=== PATIENT | female | born 1960 | race Caucasian/White ===

== ENCOUNTER 2016-03-06 10:41 | Emergency (ER) | payer BC ==
[2016-03-06 11:22] VITALS: BP 134/84
--- NOTE | 2016-03-06 12:20 | UC ---
Bite Injury/Animal HPI - HPI Summary HPI Summary: pt reports that her dog this morning had a seizure and in an attempt to help aide the dog she was trying to medicate the dog and got her left thumb and hand caught in the dog's mouth. c/o swelling, tenderness and two small lacerations and bite site The dog is a large pit bull. UTD with vaccinations and her pet. Pt reports that she is UTD with her tetanus. - History of Current Complaint Chief Complaint: UCLaceration Stated Complaint: DOG BITE Time Seen by Provider: 03/06/16 11:56 Hx Obtained From: Patient Hx Last Menstrual Period: 01/25/12 ?: No Severity Currently: Mild Severity Initially: Moderate Type of Bite: Pet Has Animal Been Immunized?: Yes Character: Puncture, Abrasion/Laceration Alleviating Factor(s): Rest Associated Signs And Symptoms: Positive: Swelling - Allergies/Home Medications Allergies/Adverse Reactions: Allergies Allergy/AdvReac Type Severity Reaction Status Date / Time Ketamine Allergy Severe See Comment Verified 02/18/16 10:49 dicyclomine Allergy Mild Dizziness Uncoded 02/18/16 10:14 PMH/Surg Hx/FS Hx/Imm Hx Previously Healthy: Yes Endocrine History Of: Reports: Thyroid Disease - Hypothyroid Denies: Diabetes Cardiovascular History Of: Denies: Cardiac Disorders, Hypertension, Congestive Heart Failure Respiratory History Of: Reports: Asthma Denies: COPD GI/ History Of: Denies: Ulcer, Renal Disease Cancer History Of: Denies: Breast Cancer - Surgical History Surgical History: Yes Surgery Procedure, Year, and Place: D&C 2 [facility] 2X 2012; HX OF 7 D&c PROCEDURES; AT 20 YEARS AGE REMOVED A WART TO HER LABIAL; COLONOSCOPY LAST ONE IN 2011-ALSO ENDOSCOPY IN 2011 WITH A BENIGN POLYP REMOVED TO HER STOMACH; - Family History Known Family History: Positive: None, Cardiac Disease, Hypertension, Diabetes, Other - cancer - Social History Lives: With Family Alcohol Use: Rare Substance Use Type: None Smoking Status (MU): Never Smoked Tobacco Review of Systems Constitutional: Negative Skin: Bruising, Other - puncture wounds, laceration, swelling, erythema Eyes: Negative ENT: Negative Respiratory: Negative Cardiovascular: Negative Gastrointestinal: Negative Genitourinary: Negative Motor: Decreased ROM - left thumb Neurovascular: Negative Musculoskeletal: Arthralgia - left thumb, and hand, Decreased ROM, Edema, Myalgia Neurological: Negative Psychological: Negative All Other Systems Reviewed And Are Negative: Yes Physical Exam Triage Information Reviewed: Yes Appearance: Well-Appearing Vital Signs: Initial Vital Signs Temp 97.3 F 03/06/16 11:00 Pulse 86 03/06/16 11:00 Resp 16 03/06/16 11:00 BP 134/84 03/06/16 11:00 Pulse Ox 98 03/06/16 11:00 Vital Signs Reviewed: Yes Eye Exam: Normal Neck exam: Normal Respiratory Exam: Other Respiratory: Positive: No respiratory distress Musculoskeletal: Positive: ROM Limited @ - r, Edema @ - left thumb, left hand Neurological Exam: Normal Psychological Exam: Normal Skin Exam: Other - left thumb and hand. two Small 1 cm long lacerations ~ 2-3 mm wide Bite Injury Course/Dx - Differential Dx/Diagnosis Differential Diagnosis/HQI/PQRI: Fracture, Laceration, Puncture, Other - dog bite Provider Diagnoses: dog bite. laceration. contusion Discharge - Discharge Plan Condition: Stable Disposition: HOME Prescriptions: Amoxicillin/Clavulanate SUSP* [Augmentin SUSP*] 6 ml PO Q12H #120 ml Ibuprofen TAB* [Motrin TAB* 600 MG] 600 mg PO Q8H PRN #15 tab PRN Reason: Pain Patient Education Materials: Animal Bite (ED) Referrals: Anil Abel MD [Primary Care Provider] -
--- NOTE | 2016-03-06 12:34 | RAD ---
Indication: Dog bite, injury to the left hand. 4 views of the hand demonstrates no fracture. No other bone or joint abnormality is noted. IMPRESSION: No fracture of the left hand is present.
== END 2016-03-06 12:36 | disposition home or self-care (01) ==
LOC: UCEAST 10:41
DX: S61.452A Open bite of left hand, initial encounter (principal); S61.052A Open bite of left thumb without damage to nail, initial encounter; W54.0XXA Bitten by dog, initial encounter; Y93.F9 Activity, other caregiving; Y92.9 Unspecified place or not applicable; Z88.8 Allergy status to other drugs, medicaments and biological substances
CPT/HCPCS: 99213; G0463

== ENCOUNTER 2018-11-10 21:25 | Emergency (ER) | payer BC ==
--- OUTSIDE RECORDS SUMMARY | 2018-11-10 21:37 | XMS REPORT | Continuity of Care Document ---
:1960 External Reference #:[id number] Author Name Jersey Schreiber MD (transmitted by agent of provider Renetta Garcia ) Address [address] [place] [id number] Care Team Providers Name Role Phone Anil Abel MD - Family Medicine Care Team Information Line Fisher Problems Active Problems Provider Date Obstructive sleep apnea syndrome Arminda Raygoza DNP, RN, CUSTOMER SERVICE CONSULTANT-BC Onset: Posttraumatic stress disorder Arminda Raygoza DNP, RN, CUSTOMER SERVICE CONSULTANT-BC Onset: 2018 Note: Pt concerned may interfere with PAP use Social History Type Date Description Comments Sex Unknown Tobacco Use Start: Unknown End: Former Cigarette Smoker Social smoker. 4 0000 per day for 6 months at the most Smoking Status Reviewed: 09/24/18 Former Cigarette Smoker Social smoker. 4 per day for 6 months at the most ETOH Use Currently consumes one glass of wine alcohol per week Tobacco Use Start: Unknown End: Patient is a former social and stopped Unknown smoker in 2002 Recreational Drug Use Denies Drug Use Smoking Wood stove in home Exercise Type/Frequency Exercises sporadically Exercise Type/Frequency Walks sporadically Exercise Type/Frequency Active in the home Allergies, Adverse Reactions, Alerts Active Allergies Reaction Severity Comments Date Ketamine 01/07/2016 Anesthesia 07/25/2017 Medications Active Medications SIG Qnty Indications Ordering Date Provider Methylprednisolone medrol dosepak 21units M25.562 Jersey Gallo 09/24/2018 4mg TBPK take as MD Abdoul instructed Lorazepam 1 po every 6 Unknown 0.5mg Tablets hours prn anxiety Effexor XR 2 tabs daily as Unknown 37.5mg Caps ER 24HR directed Vitamin D 1 by mouth every Unknown (Cholecalciferol) day 2000Unit Capsules Levothyroxine Sodium 1 tab by mouth Unknown 75mcg daily Tablets Multi Vitamin 1 by mouth every Unknown Tablets day Beano 1 tab by mouth Unknown Tablets daily prn Probiotic 1 by mouth every Unknown Capsules day prn New Zealander Herbs Unknown History Medications Estradiol 0.5gram vaginally 42.500gm N95.2 Rochelle Ruiz, 04/24/2018 - every night at 08/30/2018 0.1mg/GM Cream bedtime x 14 nights then 2x/week Medications Administered in Office Medication SIG Qnty Indications Ordering Provider Date Depomedrol 40MG Jersey Schreiber MD 04/05/2017 Injection Immunizations CPT Code Status Date Vaccine Lot # [id number] Given 12/09/2010 Influenza Virus 3Yrs & Over [id number] Given 12/11/2009 Influenza Virus 3Yrs & Over [id number] Given 11/25/2005 Influenza Virus 3Yrs & Over Vital Signs Date Vital Result Comment 09/24/2018 1:04pm Height 59 inches 4'11" Weight 138.00 lb BP Systolic 111 mmHg BP Diastolic 71 mmHg Respiratory Rate 16 /min Pain Level 8 BMI (Body Mass Index) 27.9 kg/m2 08/31/2018 10:37am Height 59 inches 4'11" Weight 134.25 lb with shoes Heart Rate 78 /min right radial BP Systolic Sitting 118 mmHg ule, reg cuff BP Diastolic Sitting 70 mmHg ule, reg cuff BP Systolic Standing 112 mmHg ule, reg cuff BP Diastolic Standing 72 mmHg ule, reg cuff BMI (Body Mass Index) 27.1 kg/m2 Ejection Fraction 60-65% echo 07/31/17 Results Test Date Facility Test Result H/L Range Note CBC Auto 08/29/2018 [facility] White Blood 5.2 10^3/uL Normal 3.5-10.[address] [place] [address] [phone] Red Blood Count 4.44 10^6/uL Normal 3.70-4.87 Hemoglobin 14.0 g/dL Normal 12.0-16.0 Hematocrit 40 % Normal 35-47 Mean Corpuscular Volume 89 fL Normal 80-97 Mean Corpuscular Hemoglobin 32 pg High 27-31 Mean Corpuscular HGB Conc 35 g/dL Normal 31-36 Red Cell Distribution Width 13 % Normal 10-15 Platelet Count 227 10^3/uL Normal 150-450 Mean Platelet Volume 9.2 fL Normal 7.4-10.4 Abs Neutrophils 3.0 10^3/uL Normal 1.5-7.7 Abs Lymphocytes 1.6 10^3/uL Normal 1.0-4.8 Abs Monocytes 0.4 10^3/uL Normal 0-0.8 Abs Eosinophils 0.1 10^3/uL Normal 0-0.6 Abs Basophils 0.0 10^3/uL Normal 0-0.2 Abs Nucleated RBC 0.0 10^3/uL Granulocyte % 58.0 % Lymphocyte % 30.7 % Monocyte % 8.2 % Eosinophil % 2.4 % Basophil % 0.7 % Nucleated Red Blood Cells % 0.1 Comp Metabolic 08/29/2018 [facility] Sodium 139 mmol/L Normal 135-[address] [place] [address] [phone] Potassium 4.1 mmol/L Normal 3.5-5.0 Chloride 105 mmol/L Normal 101-111 Co2 Carbon Dioxide 28 mmol/L Normal 22-32 Anion Gap 6 mmol/L Normal 2-11 Glucose 85 mg/dL Normal 70-100 Blood Urea Nitrogen 17 mg/dL Normal 6-24 Creatinine 0.75 mg/dL Normal 0.51-0.95 BUN/Creatinine Ratio 22.7 High 8-20 Calcium 9.7 mg/dL Normal 8.6-10.3 Total Protein 6.4 g/dL Normal 6.4-8.9 Albumin 4.3 g/dL Normal 3.2-5.2 Globulin 2.1 g/dL Normal 2-4 Albumin/Globulin Ratio 2.0 Normal 1-3 Total Bilirubin 0.70 mg/dL Normal 0.2-1.0 Alkaline Phosphatase 104 U/L Normal 34-104 Alt 32 U/L Normal 7-52 Ast 25 U/L Normal 13-39 Egfr Non- 79.4 >60 Egfr 96.0 >60 1 Laboratory test 08/29/2018 [facility] Magnesium 2.2 mg/dL Normal 1.9-2.[address] [place] [address] [phone] TSH (Thyroid Stim Horm) 0.47 mcIU/mL Normal 0.34-5.60 Lipid Panel - 08/29/2018 [facility] Creatine 48 U/L Normal 10- [address] Kinase(CK) [place], [place] [id number] [phone] Lipid Profile 08/29/2018 [facility] Triglycerides 145 2 (Trig/Chol/HD [address] mg/dL L) [place] [address] [phone] Cholesterol 226 mg/dL 3 HDL Cholesterol 77.5 mg/dL 4 LDL Cholesterol 120 mg/dL 5 Laboratory test 08/29/2018 [facility] B-Type 13 pg/mL <=[address] [place] [address] Peptide BNP [phone] Laboratory test 04/24/2018 [facility] Cytology SEE RESULT [address] [place] [address] [phone] 1 Because ethnic data is not always readily available, this report includes an eGFR for both -Americans and non- Americans. The National Kidney Disease Education Program (NKDEP) does not endorse the use of the MDRD equation for patients that are not between the ages of 18 and 70, are , have extremes of body size, muscle mass, or nutritional status, or are non- or non-. According to the National Kidney Foundation, irrespective of diagnosis, the stage of the disease is based on the level of kidney function: Stage Description GFR(mL/min/1.73 m(2)) 1 Kidney damage with normal or decreased GFR 90 2 Kidney damage with mild decrease in GFR 60-89 3 Moderate decrease in GFR 30-59 4 Severe decrease in GFR 15-29 5 Kidney failure <15 (or dialysis) 2 Desirable: <150 Borderline High: 150-199 High: 200-499 Very High: >500 3 Desirable: <200 Borderline High: 200-239 High: >239 4 Low: <40 Desirable: 40-60 High: >60 5 Desirable: <100 Near Optimal: 100-129 Borderline High: 130-159 High: 160-189 Very High: >189 6 SEE RESULT BELOW Name: RAYSA LANDRUM : [address]: Rochelle Ruiz MD Acct: [id number] Unit: [id number] AGE: 57 Location: [facility] Re04/24/18 SEX: F Status: REG REF SPEC: [id number] LORENA: 04/24/[address]: Rochelle Ruiz MD REQ: [id number] RECD: 04/24/18 STATUS: SOUT _ ORDERED: TP IMAGE ANALYS, HPV/Thin Prep COMMENTS: [id number] Negative for Intraepithelial lesion or Malignancy Date Time Test Result Flag (u) Normal Range 04/24/18958 @ HPV RNA Negative Negative @ @ The high-risk HPV types detected by the assay include: 16, @ 18, 31, 33, 35, 39, 45, 51, 52, 56, 58, 59, 66, and 68. A. Ectocervical/Endocervical Specimen Adequacy: Satisfactory of evaluation Transformation zone component identified Patient Information: HPV: High risk HPV RNA testing regardless of pap results. Actual Specimen Date: 04/24/18 Last Menstrual Date: 02/07/16 ?: N Post Menopausal?: Y Hysterectomy?: N Previous Abnormal Pap Smears?:Y If Yes, enter Diagnosis: HPV+ Signed by and Reported on: URIAH Tubbs (ASCP) 0315 This Pap test was evaluated with the assistance of the [facility] SolutionPrep Test Imaging System. Due to cytologic findings at the elevator service technician microscope, comprehensive manual rescreening by a Ship Carpenter may be required. The Pap Smear is a screening test designed to aid in the detection of premalignant and malignant conditions of the uterine cervix. It is not a diagnostic procedure and should not be used as the sole means of detecting cervical cancer. Both false- positive and false- negative reports do occur. Depending on your risk status, a Pap smear should be obtained and evaluated every 1-3 years. END OF REPORT DEPARTMENT OF PATHOLOGY, [address] [place] [address] Ankur Dia M.D. Director HONG # [id number] Procedures Date Code Description Status 08/31/2018 59115 EKG Tracing & Interpretation Completed 12/18/2017 [id number] Mammogram Completed 12/30/2015 [id number] Bone Mineral Density Test Completed 06/19/2015 [id number] Mammogram Completed 02/11/2014 [id number] Mammogram Completed 12/02/2002 [id number] Colonoscopy Completed Medical Devices Description No Information Available Encounters Type Date Location Provider Dx Diagnosis Office Visit 08/31/2018 [facility] Allison Ovalle, G47.33 Obstructive sleep 10:30a N.P. apnea (adult) (pediatric) I49.1 Atrial premature depolarization I49.3 Ventricular premature depolarization R94.31 Abnormal electrocardiogram [ECG] [EKG] Office Visit 05/25/2018 [facility] G47.33 Obstructive sleep 8:30a [facility] Raygo[facility], RN, apnea (adult) [facility] CUSTOMER SERVICE CONSULTANT-BC (pediatric) J34.89 Other specified disorders of nose and nasal sinuses Office Visit 04/24/2018 9:00a [facility] Rochelle Ruiz, N95.[address] [facility] atrophic vaginitis at [place] Z01.419 Encntr for obstetrics gynecology md exam (general) (routine) w/o abn findings Z11.51 Encounter for screening for human papillomavirus (HPV) Assessments Date Code Description Provider 09/24/2018 M25.562 Pain in left knee Jersey Schreiber MD 08/31/2018 R94.31 Abnormal electrocardiogram [ECG] Duong Maier M.D. [EKG] 08/31/2018 G47.33 Obstructive sleep apnea (adult) Allison Ovalle, N.P. (pediatric) 08/31/2018 I49.1 Atrial premature depolarization Allison Ovalle, N.P. 08/31/2018 I49.3 Ventricular premature depolarization Allison Ovalle, N.P. 08/31/2018 R94.31 Abnormal electrocardiogram [ECG] Allison Ovalle, N.P. [EKG] 05/25/2018 G47.33 Obstructive sleep apnea (adult) Arminda Raygoza DNP, RN, (pediatric) CUSTOMER SERVICE CONSULTANT-BC 05/25/2018 J34.89 Other specified disorders of nose and Armindapatricia Raygoza DNP , RN, nasal sinuses CUSTOMER SERVICE CONSULTANT-BC 04/24/2018 N95.2 Postmenopausal atrophic vaginitis Rochelle Ruiz MD 04/24/2018 Z01.419 Encounter for gynecological Rochelle Ruiz MD examination (general) (routine) 04/24/2018 Z11.51 ut abnormal findings Rochelle Ruiz MD Plan of Treatment Future Appointment(s):10/18/2018 2:00 pm - Master Santos MD at [facility] Lunugcllcrx01/11/2019 8:15 am - Arminda Raygoza DNP, RN, CUSTOMER SERVICE CONSULTANT-BC at [facility]09/24/2018 - Jersey Schreiber, MDM25.562 Pain in left kneeNew Medication:Methylprednisolone 4 mg - medrol dosepak take as instructedFollow up:Follow up: As needed Functional Status Description No Information Available Mental Status Description No Information Available Referrals Description No Information Available
--- OUTSIDE RECORDS SUMMARY | 2018-11-10 21:37 | XMS REPORT | Continuity of Care Document ---
:1960 External Reference #:[id number] Author Name Bharathi Gross MD (transmitted by agent of provider Stephen Dozier) Address [address] [place] [id number] Care Team Providers Name Role Phone Anil Abel MD - Family Medicine Care Team Information Strip Deburrer [phone] Problems Active Problems Provider Date Obstructive sleep apnea syndrome Arminda Raygoza DNP, RN, CODER-BC Onset: Posttraumatic stress disorder Arminda Raygoza DNP, RN, CODER-BC Onset: 2018 Note: Pt concerned may interfere with PAP use Knee pain Bharathi Gross MD Onset: 10/26/2018 Derangement of knee Bharathi Gross MD Onset: 10/26/2018 Iliotibial band friction syndrome Bharathi Gross MD Onset: 10/26/2018 Social History Type Date Description Comments Sex Unknown Tobacco Use Start: Unknown End: Former Cigarette Smoker Social smoker. 4 / per day for 6 months at the most Smoking Status Reviewed: 10/26/18 Former Cigarette Smoker Social smoker. 4 per [...] Medications SIG Qnty Indications Ordering Date Provider Diclofenac Sodium take 1 tablet 60tabs M76.32 Bharathi Gross, 10/26/2018 75mg Tablets twice a day with MD DR almazan Methylprednisolone medrol dosepak 21units M25.562 Jersey Gallo [...] by mouth every Unknown Capsules day prn Congolese Herbs Unknown Medications Administered in Office Medication SIG Qnty Indications Ordering Provider Date Depomedrol 40MG Jersey Schreiber MD 04/05/2017 Injection Immunizations CPT Code Status Date Vaccine Lot # [id number] Given 12/09/2010 Influenza Virus 3Yrs & Over [id number] Given 12/11/2009 Influenza Virus 3Yrs & Over [id number] Given 11/25/2005 Influenza Virus 3Yrs & Over Vital Signs Date Vital Result Comment 10/26/2018 10:26am Height 59 inches 4'11" Weight 140.00 lb Heart Rate 68 /min BP Systolic 102 mmHg BP Diastolic 68 mmHg Respiratory Rate 12 /min Pain Level 6 BMI (Body Mass Index) 28.3 kg/m2 09/24/2018 1:04pm Height 59 inches 4'11" Weight 138.00 lb BP Systolic 111 mmHg BP Diastolic 71 mmHg Respiratory Rate 16 /min Pain Level 8 BMI (Body Mass Index) 27.9 kg/m2 Results Test Date Facility Test Result H/L Range Note CBC Auto 08/29/2018 [facility] White Blood 5.2 10^3/uL Normal 3.5-10.[address] [place] [address] [phone] Red Blood Count 4.44 10^6/uL Normal 3.70-4.87 [...] Blood Cells % 0.1 Comp Metabolic 08/29/2018 [facility] Sodium 139 mmol/L Normal 135-[address] [place] [address] [phone] Potassium 4.1 mmol/L Normal 3.5-5.0 Chloride 105 [...] Egfr 96.0 >60 1 Laboratory test 08/29/2018 [facility] Magnesium 2.2 mg/dL Normal 1.9-2.[address] [place] [address] [phone] TSH (Thyroid Stim Horm) 0.47 mcIU/mL Normal 0.34-5.60 Lipid Panel - 08/29/2018 [facility] Creatine 48 U/L Normal 10- [address] Kinase(CK) [place] [address] [phone] Lipid Profile 08/29/2018 [facility] Triglycerides 145 2 (Trig/Chol/HD [address] mg/dL L) [place] [address] [phone] Cholesterol 226 mg/dL 3 HDL Cholesterol 77.5 mg/dL 4 LDL Cholesterol 120 mg/dL 5 Laboratory test 08/29/2018 [facility] B-Type 13 pg/mL <=[address] [place] [address] Peptide BNP [phone] 1 Because ethnic data is not always [...] High: 130-159 High: 160-189 Very High: >189 Procedures Date Code Description Status 08/31/2018 22235 EKG Tracing & Interpretation Completed 12/18/2017 [id number] Mammogram Completed 12/30/2015 [id number] Bone Mineral Density Test Completed 06/19/2015 [id number] Mammogram Completed 02/11/2014 [id number] Mammogram Completed 12/02/2002 [id number] Colonoscopy Completed Medical Devices Description No Information Available Encounters Type Date Location Provider Dx Diagnosis Office Visit 10/18/2018 [facility] Dermatology Master Santos MD L82.1 Other seborrheic 2:00p keratosis D22.61 Melanocytic nevi of right upper limb, including shoulder Z80.8 Family history of malignant neoplasm of organs or systems Office Visit 09/24/2018 1:00p Orthopedic Jersey Gallo M25.562 Pain in left knee Services Of MD Abdoul C.M.A. Office Visit 08/31/2018 10:30a Rick Ku G47.33 Obstructive sleep Cardiology Vasquez, N.P. apnea (adult) (pediatric) I49.1 Atrial premature depolarization I49.3 Ventricular premature depolarization R94.31 Abnormal electrocardiogram [ECG] [EKG] Office Visit 05/25/2018 [facility] G47.33 Obstructive sleep 8:30a [facility] Ray[facility], RN, apnea (adult) [facility] CODER-BC (pediatric) J34.89 Other specified disorders of nose and nasal sinuses Assessments Date Code Description Provider 10/26/2018 M76.32 Iliotibial band syndrome, left leg Bharathi Gross MD 10/26/2018 M22.2x2 Patellofemoral disorders, left knee Bharathi Gross MD 10/26/2018 M25.562 Pain in left knee Bharathi Gross MD 10/18/2018 L82.1 Other seborrheic keratosis Master Santos MD 10/18/2018 D22.61 Melanocytic nevi of right upper limb, Master Santos MD including shoulder 10/18/2018 Z80.8 Family history of malignant neoplasm Master Santos MD of other organs or systems 09/24/2018 M25.562 Pain in left knee Jersey Schreiber MD 08/31/2018 R94.31 Abnormal electrocardiogram [ECG] Duong Maier M.D. [EKG] 08/31/2018 G47.33 Obstructive sleep apnea (adult) Allison Ovalle N.P. (pediatric) 08/31/2018 I49.1 Atrial premature depolarization Allison Ovalle, N.P. 08/31/2018 I49.3 Ventricular premature depolarization Allison Ovalle N.P. 08/31/2018 R94.31 Abnormal electrocardiogram [ECG] Allison Ovalle N.P. [EKG] 05/25/2018 G47.33 Obstructive sleep apnea (adult) Arminda Raygoza DNP, RN, (pediatric) CODER-BC 05/25/2018 J34.89 Other specified disorders of nose and Arminda Raygoza DNP , RN, nasal sinuses CODER- Plan of Treatment Future Appointment(s):12/07/2018 8:00 am - Bharathi Gross MD at [facility].11/16/2018 8:15 am - Arminda Raygoza DNP, RN, [facility]- at [facility]10/26/2018 - Bharathi Gross, MDM76.32 Iliotibial band syndrome, left legNew Medication:Diclofenac Sodium 75 mg - take 1 tablet twice a day with foodNew Therapy:Physical TherapyFollow up:Follow up: with Abdoul in 6 weeks or as xsftqxD77.2x2 Patellofemoral disorders, left kneeNew Therapy:Physical YnisamxB06.562 Pain in left kneeNew Therapy:Physical Therapy Functional Status Description No Information Available Mental Status Description No Information Available Referrals Description No Information Available
--- OUTSIDE RECORDS SUMMARY | 2018-11-10 21:37 | XMS REPORT | Continuity of Care Document ---
:1960 External Reference #:[id number] Author Name Anil Abel M.D. Address [address] [place] [address] Care Team Providers Name Role Phone Anil Abel MD - Family Medicine Care Team Information Shearing Supervisor [phone] [facility] - Care Team Information Shearing Supervisor [phone] [facility] Sal[facility] Wayne - Holistic Care Team Information Shearing Supervisor [phone] Theresa Peña MD - Dermatology Care Team Information Shearing Supervisor Edward Benítez - Obstetrics & Care Team Information Shearing Supervisor Gynecology [facility] - Diagnostic Care Team Information Shearing Supervisor Radiology Rochelle Ruiz - Obstetrics Care Team Information Shearing Supervisor [phone] Daniela Pratt MD - Rheumatology Care Team Information Shearing Supervisor [phone] Jersey Schreiber MD - Orthopaedic Care Team Information Shearing Supervisor Surgery Problems Active Problems Provider Date Hypothyroidism Anil Abel M.D. Onset: 11/06/2010 Gastroesophageal reflux disease Anil Abel M.D. Onset: 04/01/2011 Depressive disorder Anil Abel M.D. Onset: 01/16/2012 Disorder of thyroid gland Anil Abel M.D. Onset: 01/08/2016 Fibromyalgia Anil Abel M.D. Onset: 06/10/2016 Obstructive sleep apnea syndrome Anil Abel M.D. Onset: 04/21/2017 Family history of conduction disorder of the Anil Abel M.D. Onset: heart Knee pain Anil Abel M.D. Onset: 11/08/2018 Hypoglycemia Anil Abel M.D. Onset: 06/12/2018 Degenerative joint disease involving Anil Abel M.D. Onset: 05/03/2018 multiple joints Palpitations Anil Abel M.D. Onset: 10/30/2017 Social History Type Date Description Comments Sex Unknown Tobacco Use Start: Unknown End: Former Cigarette Smoker quit 20 yrs ago Unknown ETOH Use Rarely consumes alcohol Tobacco Use Start: Unknown End: Patient is a former smoker Unknown Smoking Status Reviewed: 04/16/18 Patient is a former smoker Allergies, Adverse Reactions, Alerts Active Allergies Reaction Severity Comments Date Anesthesia serotonin syndrome? 09/18/2010 Inactive Allergies NKDA 09/18/2010 Medications Active Medications SIG Qnty Indications Ordering Date Provider Lorazepam take 1 tablet by 90tabs Anil FEliza 10/30/2018 0.5mg mouth three times a Lisa Abel Tablets day Venlafaxine HCL ER take 1 capsules 180caps Anil FEliza 10/30/2018 daily Lisa Abel 37.5mg Caps ER 24HR Vitamin D qd Anil FEliza 01/08/2016 2000Unit Lisa Abel Tablets Synthroid 1 by mouth every 90tabs Anil FEliza 02/03/2015 75mcg day Lisa Abel Tablets Multivitamin Adult 1 by mouth every Anil F. day Lisa Abel Tablets Magnesium 1 daily Unknown Capsules Vitamin B12 1 daily Unknown Tablets Latvian Herbal for constipation Unknown Supplement History Medications Alprazolam take one tablet 30tabs F41.1 Ashtyn Byers, 10/25/2018 - 0.5mg by mouth once INVESTMENT REPRESENTATIVE 11/08/2018 Tablets daily as needed for anxiety Note No Work Debbie was seen F32.89 Ashtyn Byers, 10/19/2018 - by me today and INVESTMENT REPRESENTATIVE 11/08/2018 may not return to work until Monday, Physical Therapy evaluate and M25.511 Ashtyn Byers, 05/24/2018 - treat right INVESTMENT REPRESENTATIVE 10/24/2018 shoulder pain that radiates to the elbow Immunizations CPT Code Status Date Vaccine Lot # [id number] Given 11/08/2018 Influenza Virus Vaccine, Recombinant Dna, [id number] [place] [address] Given 12/13/2017 Influenza Virus Vaccine, Recombinant Dna, [id number] [place] [address] Given 11/25/2016 Influenza Vac, Quadrivalent, Slit Virus, Im [id number] 18627 Given 03/08/2016 Tetanus And Diptheria Adult Preservative Free [id number] >7Yrs 80543 Given 01/19/2016 Influenza Vac, Quadrivalent, Slit Virus, Im [id number] 44122 Given 10/31/2014 Influenza Vac, Quadrivalent, Slit Virus, Im [id number] 49716 Given 11/19/2013 DO Not Use Split Influenza Virus Vaccine [id number] 40120 Given 12/20/2012 DO Not Use Split Influenza Virus Vaccine [id number] 23999 Given 01/16/2012 DO Not Use Split Influenza Virus Vaccine [id number] 90874 Given 01/11/2008 DO Not Use Split Influenza Virus Vaccine [id number] 08215 Given 08/03/2007 Tdap Tetanus, W Pertussis [id number] 67669 Given 01/17/2007 DO Not Use Split Influenza Virus Vaccine [id number] Vital Signs Date Vital Result Comment 11/08/2018 8:08am BP Systolic 116 mmHg BP Diastolic 78 mmHg Heart Rate 64 /min Body Temperature 97.7 F Respiratory Rate 16 /min Height 59 inches 4'11" Weight 140.00 lb BMI (Body Mass Index) 28.3 kg/m2 10/25/2018 2:59pm BP Systolic 110 mmHg BP Diastolic 60 mmHg Heart Rate 60 /min Body Temperature 98.1 F Respiratory Rate 16 /min Height 59 inches 4'11" Weight 137.12 lb BMI (Body Mass Index) 27.7 kg/m2 Results Test Date Facility Test Result H/L Range Note CBC Auto Diff 08/29/2018 [facility] [place] [facility] [place] White Blood Count 5.2 10^3/uL Normal 3.5- 10.8 Red Blood Count 4.44 10^6/uL Normal 3.70-4.87 [...] % Nucleated Red Blood Cells % 0.1 Laboratory test 08/29/2018 [facility] [place] [facility] [place] B-Type Natriuretic 13 pg/mL <=100 finding Peptide BNP Comp Metabolic Panel 08/29/2018 [facility] [place] Sodium 139 mmol/L Normal 135-145 Potassium 4.1 mmol/L Normal 3.5-5.0 Chloride 105 [...] Non- 79.4 >60 Egfr 96.0 >60 1 Lipid Profile (Trig/Chol/HDL) 08/29/2018 [facility] Triglycerides 145 mg/dL 2 Cholesterol 226 mg/dL 3 HDL Cholesterol 77.5 mg/dL 4 LDL Cholesterol 120 mg/dL 5 Laboratory test finding 08/29/2018 [facility] Magnesium 2.2 mg/dL Normal 1.9- 2.7 Creatine Kinase(CK) 48 U/L Normal 10-223 TSH (Thyroid Stim Horm) 0.47 mcIU/mL Normal 0.34-5.60 1 Because ethnic data is not always [...] High: >189 Procedures Date Code Description Status 12/18/2017 [id number] Mammogram Completed 08/26/2016 [id number] Mammogram Completed 12/08/2015 [id number] Bone Mineral Density Test Completed 06/19/2015 [id number] Mammogram Completed 02/11/2014 [id number] Mammogram Completed 01/08/2013 [id number] Mammogram Completed 12/12/2011 [id number] Mammogram Completed 06/20/2011 [id number] Colonoscopy Completed 12/28/2010 [id number] Mammogram Completed 09/17/2008 [id number] Mammogram Completed 09/24/2007 [id number] Mammogram Completed 03/19/2007 [id number] Mammogram Completed Medical Devices Description No Information Available Encounters Type Date Location Provider Dx Diagnosis Office Visit 10/25/2018 [facility] Ashtyn Byers, INVESTMENT REPRESENTATIVE F32.89 Other specified 3:00p depressive episodes F41.1 Generalized anxiety disorder Office Visit 10/19/2018 2:00p [facility] Ashtyn Byers, INVESTMENT REPRESENTATIVE M25.562 Pain in left knee F32.89 Other specified depressive episodes Office Visit 05/24/2018 10:30a [facility] Ashtyn Byers, M25.511 Pain in right INVESTMENT REPRESENTATIVE shoulder Assessments Date Code Description Provider 11/08/2018 Z23 Encounter for immunization Anil Abel M.D. 11/08/2018 F32.89 Other specified depressive episodes Anil Abel M.D. 11/08/2018 M25.562 Pain in left knee Anil Abel M.D. 11/08/2018 G47.33 Obstructive sleep apnea (adult) (pediatric) Anil Abel M.D. 10/25/2018 F32.89 Other specified depressive episodes Ashtyn Floresr, [facility] 10/25/2018 F41.1 Generalized anxiety disorder Ashtyn Floresr, INVESTMENT REPRESENTATIVE 10/19/2018 M25.562 Pain in left knee Ashtyn Floresr, [facility] 10/19/2018 F32.89 Other specified depressive episodes Ashtyn Byers, [facility] 06/12/2018 E16.1 Other hypoglycemia Anil Abel M.D. 05/24/2018 M25.511 Pain in right shoulder Ashtyn PAULIE Byers Plan of Treatment Future Appointment(s):05/16/2019 8:00 am - Anil Abel M.D. at [facility] Hrgkvj6511/08/2018 - Anil Abel M.D.Z23 Encounter for immunizationFollow up :Followup:. (Follow up)F32.89 Other specified depressive episodesComments:she may try to taper and discontinue effexor, but also might continue, to consider counselling , patient continues to struggle with ongoing symptoms of depression and alwkhhH01.562 Pain in left kneeComments:to continue with physical therapy, MRI oxnjhwtfT53.33 Obstructive sleep apnea (adult) (pediatric)Comments:to continue cpapAllComments:Medication Management Patient Understands medications she's taking? Yes No Are there Barriers to Adherence? Yes No Has the patient been asked about herbal supplements and therapies, and OTC meds? Yes No mammogram and ultrasound ordered Functional Status Description No Information Available Mental Status Description No Information Available Referrals Description No Information Available
--- NOTE | 2018-11-10 21:55 | ED ---
Throat Pain/Nasal Congestion - HPI Summary HPI Summary: This patient is a 58 year old F presenting to [facility] accompanied by male friend with a chief complaint of left eye issues since last night, 11/09/18, but noticed this morning 11/10/18. The CC is described as strings of light/ flashes in left eye (comes in and goes out) with slight eye pressure. Pt reports vision is normal and right eye is unaffected. Symptoms aggravated by nothing. Symptoms alleviated by nothing. Patient reports her dog "head-butted" her and does not recall eye pain due to hit. Patient denies nausea, vomiting. Denies contacts but wears glasses. Denies any previous eye issues except floaters. Takes medication for depression. - History of Current Complaint Chief Complaint: EDEyeProblem Time Seen by Provider: 11/10/18 21:43 Hx Obtained From: Patient Onset/Duration: Lasting Days, Still Present - Allergies/Home Medications Allergies/Adverse Reactions: Allergies Allergy/AdvReac Type Severity Reaction Status Date / Time MS Ketamine [Ketamine] Allergy Severe See Comment Verified 11/10/18 21:29 dicyclomine Allergy Mild Dizziness Uncoded 11/10/18 21:29 PMH/Surg Hx/FS Hx/Imm Hx Endocrine/Hematology History: Reports: Hx Thyroid Disease - Hypothyroid Denies: Hx Diabetes, Hx Systemic Lupus Erythematosus Cardiovascular History: Denies: Hx Congestive Heart Failure, Hx Hypertension, Hx Pacemaker/ICD Respiratory History: Reports: Hx Asthma Denies: Hx Chronic Obstructive Pulmonary Disease (COPD) GI History: Reports: Hx Gastroesophageal Reflux Disease Denies: Hx Ulcer, Other GI Disorders History: Denies: Hx Dialysis, Hx Renal Disease Musculoskeletal History: Denies: Hx Rheumatoid Arthritis, Hx Osteoporosis Sensory History: Denies: Hx Hearing Aid Psychiatric History: Denies: Hx Panic Disorder - Cancer History Cancer Type, 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 Hx Chemotherapy: Yes - FACE Hx Radiation Therapy: No - Surgical History Surgery Procedure, Year, and Place: D&C 2 [facility] 2X 2012; HX OF 7 D&c PROCEDURES; AT 20 YEARS AGE REMOVED A WART TO HER LABIAL; COLONOSCOPY LAST ONE IN 2011-ALSO ENDOSCOPY IN 2011 WITH A BENIGN POLYP REMOVED TO HER STOMACH; Infectious Disease History: No Infectious Disease History: Denies: Hx Clostridium Difficile, Hx Hepatitis, Hx Human Immunodeficiency Virus (HIV), Hx of Known/Suspected MRSA, Hx Shingles, Hx Tuberculosis, Hx Known/ Suspected VRE, Hx Known/Suspected VRSA, History Other Infectious Disease, Traveled Outside the [place] in Last 30 Days - Family History Known Family History: Positive: Cardiac Disease, Hypertension, Diabetes, Other - cancer - Social History Alcohol Use: Rare Hx Substance Use: No Substance Use Type: Reports: None Hx Tobacco Use: No Smoking Status (MU): Never Smoked Tobacco Review of Systems Positive: Other - strings of light/ flashes in left eye , eye pressure Negative: Vomiting, Nausea All Other Systems Reviewed And Are Negative: Yes Physical Exam - Summary Physical Exam Summary: Appearance: Well-appearing, Well-nourished, lying in bed comfortable Skin: Warm, dry, no obvious rash Eyes:: both eyes appear grossly nml without injection, chemosis or swelling, gaze is conjugate, no diplopia, pupillary reaction is normal, visual acuity in both eyes appears grossly normal, no obvious peripheral field cuts to confrontation ENT: mucous membranes moist Neck: deferred Respiratory: No signs of respiratory distress Cardiovascular: Appears well perfused, pulses are nml Abdomen: deferred Musculoskeletal: Moving all 4 extremities without obvious discomfort Neurological: Awake and alert, mentation is normal, speech is fluent and appropriate Psychiatric: affect is normal, does not appear anxious or depressed Triage Information Reviewed: Yes Vital Signs On Initial Exam: Initial Vitals Temp Pulse Resp BP Pulse Ox 97.7 F 61 15 141/70 98 11/10/18 21:26 11/10/18 21:26 11/10/18 21:26 11/10/18 21:26 11/10/18 21:26 Vital Signs Reviewed: Yes Procedures - Sedation Patient Received Moderate/Deep Sedation with Procedure: No Diagnostics - Vital Signs Vital Signs Temp Pulse Resp BP Pulse Ox 11/10/18 21:26 97.7 F 61 15 141/70 98 - Laboratory Lab Statement: Any lab studies that have been ordered have been reviewed, and results considered in the medical decision making process. Re-Evaluation - Re-Evaluation First Eval Re-Evaluation Time: 22:07 Comment: Pt agrees with plan for discharge. EENT Course/Dx - Course Course Of Treatment: This patient is a 58 year old F presenting to [facility] accompanied by male friend with a chief complaint of left eye issues since last night, 11/09/18, but noticed this morning 11/10/18. The CC is described as strings of light/ flashes in left eye (comes in and goes out) with slight eye pressure. Pt reports vision is normal and right eye is unaffected. Patient denies nausea, vomiting. Physical Exam Findings shows no abnormalities except for both eyes appear grossly normal without injection or swelling, gaze is conjugate, no diplopia, reaction is normal, visual acuity in both eyes appears grossly normal, no obvious peripheral field cuts to confrontation. We discussed patient care with Dr. Martin and they recommended following up with them on 11/12/18, and if symptoms worsen to follow up with them tomorrow. The patient is agreeable with this plan. - Diagnoses Provider Diagnoses: Vitreous detachment - Provider Notifications Discussed Care Of Patient With: Rayna Martin - [facility] Time Discussed With Above Provider: 22:07 Instructed by Provider To: Other - recommends following up with them on 11/12/18, and if symptoms worsen to follow up with them tomorrow Discharge ED - Sign-Out/Discharge Documenting (check all that apply): Patient Departure - discharge - Discharge Plan Condition: Stable Disposition: HOME Referrals: Rayna Martin MD [Medical Doctor] - Additional Instructions: I spoke with Dr. Martin, who is the covering doctor for [facility] this . She will have her office contact you on Monday with a time to be seen then. She did caution that if your symptoms appear to be progressing through tomorrow, you can reach her through her service at [phone] and she will discuss things with you over the phone and can open the office to examine you anytime Monday if that proves necessary. - Billing Disposition and Condition Condition: STABLE Disposition: Home - Attestation Statements Document Initiated by Tatianaibe: Yes Documenting Scribe: Emilie Noel Provider For Whom Jason is Documenting (Include Credential): Dr. Arya Bryant MD. Scribe Attestation: I, aisha Michaelsed for Dr. Arya Bryant MD. on 11/11/18 at 1841. Scribe Documentation Reviewed: Yes Provider Attestation: The documentation as recorded by the Emilie holcomb accurately reflects the service I personally performed and the decisions made by me, Dr. Arya Bryant MD. Status of Scribe Document: Viewed
[2018-11-10 22:35] VITALS: BP 137/77
== END 2018-11-10 22:34 | disposition home or self-care (01) ==
LOC: ED 21:25
DX: H43.812 Vitreous degeneration, left eye (principal); E03.9 Hypothyroidism, unspecified; J45.909 Unspecified asthma, uncomplicated; K21.9 Gastro-esophageal reflux disease without esophagitis; F32.9 Major depressive disorder, single episode, unspecified; Z79.899 Other long term (current) drug therapy; Z88.4 Allergy status to anesthetic agent; Z88.8 Allergy status to other drugs, medicaments and biological substances
CPT/HCPCS: 99282

== ENCOUNTER 2019-01-14 17:32 | Emergency (ER) | payer BC ==
--- NOTE | 2019-01-14 18:25 | ED ---
Psychiatric Complaint - HPI Summary HPI Summary: This pt is a 58 y/o female [facility] c/o SI thoughts today. Pt reports she has been having moments of SI but does not want to . Denies SI plan. She notes recent stressor of increased memories from her tearer trauma. Denies hallucinations. Pt states she sleeps ok and takes a couple of Ativan to help her sleep. She states she needs to speak to a psychiatrist to get some medications to help her anxiety and SI. Denies drug, alcohol, or tobacco use. Pt was last hospitalized for mental health in the past, last time was in 1992. - History Of Current Complaint Chief Complaint: EDMentalHealth Time Seen by Provider: 01/14/19 18:13 Hx Obtained From: Patient Hx Last Menstrual Period: 01/25/12 Onset/Duration: Lasting Days Timing: Days Severity Currently: Moderate Character: Depressed, Anxious Aggravating Factor(s): Recent Stress Alleviating Factor(s): Nothing Associated Signs And Symptoms: Negative: Hallucinating, Sleep Disturbance Related History: Positive For: Prior Psychiatric Issues Has Suicidal: Reports: Thoughts. Denies: With A Plan Has Homicidal: Denies: Thoughts, With A Plan Recent Stressor(s): memories from childhood trauma - Allergies/Home Medications Allergies/Adverse Reactions: Allergies Allergy/AdvReac Type Severity Reaction Status Date / Time ketamine Allergy Severe See Comment Verified 01/15/19 02:45 dicyclomine AdvReac Mild Dizziness Verified 01/15/19 02:45 PMH/Surg Hx/FS Hx/Imm Hx Endocrine/Hematology History: Reports: Hx Thyroid Disease - Hypothyroid Denies: Hx Diabetes, Hx Systemic Lupus Erythematosus Cardiovascular History: Denies: Hx Congestive Heart Failure, Hx Hypertension, Hx Pacemaker/ICD Respiratory History: Reports: Hx Asthma Denies: Hx Chronic Obstructive Pulmonary Disease (COPD) GI History: Reports: Hx Gastroesophageal Reflux Disease Denies: Hx Ulcer, Other GI Disorders History: Denies: Hx Dialysis, Hx Renal Disease Musculoskeletal History: Denies: Hx Rheumatoid Arthritis, Hx Osteoporosis Sensory History: Denies: Hx Hearing Aid Psychiatric History: Denies: Hx Panic Disorder - Cancer History Cancer Type, 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 Hx Chemotherapy: Yes - FACE Hx Radiation Therapy: No - Surgical History Surgery Procedure, Year, and Place: D&C 2 [facility] 2X 2012; HX OF 7 D&c PROCEDURES; AT 20 YEARS AGE REMOVED A WART TO HER LABIAL; COLONOSCOPY LAST ONE IN 2012-ALSO ENDOSCOPY IN 2012 WITH A BENIGN POLYP REMOVED TO HER STOMACH; Infectious Disease History: No Infectious Disease History: Denies: Hx Clostridium Difficile, Hx Hepatitis, Hx Human Immunodeficiency Virus (HIV), Hx of Known/Suspected MRSA, Hx Shingles, Hx Tuberculosis, Hx Known/ Suspected VRE, Hx Known/Suspected VRSA, History Other Infectious Disease, Traveled Outside the [place] in Last 30 Days - Family History Known Family History: Positive: Cardiac Disease, Hypertension, Diabetes, Other - cancer - Social History Alcohol Use: Rare Hx Substance Use: No Substance Use Type: Reports: None Hx Tobacco Use: No Smoking Status (MU): Never Smoked Tobacco Review of Systems Negative: Fever, Chills Negative: Erythema Negative: Sore Throat Negative: Chest Pain Negative: Shortness Of Breath, Cough Negative: Abdominal Pain, Vomiting, Nausea Negative: dysuria, hematuria Negative: Myalgia, Edema Negative: Rash Neurological: Other - NEGATIVE: dizziness Psychological: Other - POSITIVE: SI All Other Systems Reviewed And Are Negative: Yes Physical Exam - Summary Physical Exam Summary: Constitutional: Well-developed, Well-nourished, Alert. (-) Distressed Skin: Warm, Dry HENT: Normocephalic; Atraumatic Eyes: Conjunctiva normal Neck: Musculoskeletal ROM normal neck. (-) JVD, (-) Stridor, (-) Tracheal deviation Cardio: Rhythm regular, rate normal, Heart sounds normal; Intact distal pulses; The pedal pulses are 2+ and symmetric. Radial pulses are 2+ and symmetric. (-) Murmur Pulmonary/Chest wall: Effort normal. (-) Respiratory distress, (-) Wheezes, (-) Rales Abd: Soft, (-) tenderness, (-) Distension, (-) Guarding, (-) Rebound Musculoskeletal: (-) Edema Lymph: (-) Cervical adenopathy Neuro: Alert, Oriented x3 Psych: Mood and affect Normal Triage Information Reviewed: Yes Vital Signs On Initial Exam: Initial Vitals Temp Pulse Resp BP Pulse Ox 97.9 F 77 17 158/87 97 01/14/19 17:38 01/14/19 17:38 01/14/19 17:38 01/14/19 17:38 01/14/19 17:38 Vital Signs Reviewed: Yes Procedures - Sedation Patient Received Moderate/Deep Sedation with Procedure: No Diagnostics - Vital Signs Vital Signs Temp Pulse Resp BP Pulse Ox 01/14/19 17:38 97.9 F 77 17 158/87 97 - Laboratory Result Diagrams: 01/14/19 18:38 01/14/19 18:38 Lab Statement: Any lab studies that have been ordered have been reviewed, and results considered in the medical decision making process. Course/Dx - Course Assessment/Plan: Pt is a 58 y/o female presenting to [facility] c/o SI thoughts today. Pt reports she has been having moments of SI but does not want to . Denies SI plan. She notes recent stressor of increased memories from her tearer trauma. Denies hallucinations. Pt states she sleeps ok and takes a couple of Ativan to help her sleep. She states she needs to speak to a psychiatrist to get some medications to help her anxiety and SI. Blood work was obtained. Pt is medically cleared. She is waiting for a MHE. Patient will be signed out to Dr. Bryant pending MHE and disposition. - Differential Dx/Clinical Impression Provider Diagnosis: Mood disorder Discharge ED - Sign-Out/Discharge Documenting (check all that apply): Sign-Out Patient Signing out patient TO: Arya Bryant - pending MHE and dispo - Discharge Plan Condition: Stable Disposition: HOME Referrals: Anil Abel MD [Primary Care Provider] - - Billing Disposition and Condition Condition: STABLE Disposition: Home - Attestation Statements Document Initiated by Scribe: Yes Documenting Scribe: Casandra Schwarz Provider For Whom Scribe is Documenting (Include Credential): Jem Valerio MD Scribe Attestation: Casandra Ford, scribed for Jem Valerio MD on 01/26/19 at 0942. Scribe Documentation Reviewed: Yes Provider Attestation: The documentation as recorded by the Casandra holcomb accurately reflects the service I personally performed and the decisions made by me, Jem Vlaerio MD Status of Scribe Document: Viewed
[2019-01-14 18:55] LABS: ABS Eosinophils 0.1 10^3/ul (0-0.6); ABS Lymphocytes 2.1 10^3/ul (1.0-4.8); ABS Monocytes 0.5 10^3/ul (0-0.8); ABS Neutrophils 4.6 10^3/ul (1.5-7.7); Eosinophil % 1.4 %; Hematocrit 39 % (35-47); Hemoglobin 13.7 g/dL (12.0-16.0); Lymphocyte % 28.9 %; Mean Corpuscular HGB Conc 35 g/dL (31-36); Mean Corpuscular Hemoglobin 31 pg (27-31); Mean Corpuscular Volume 89 fL (80-97); Nucleated Red Blood Cells % 0.1; Platelet Count 290 10^3/uL (150-450); Red Cell Distribution Width 13 % (10-15); White Blood Count 7.3 10^3/uL (3.5-10.8)
[2019-01-14 19:02] LABS: ALT 19 U/L (7-52); AST 16 U/L (13-39); Albumin 4.6 g/dL (3.2-5.2); Alkaline Phosphatase 109 U/L (34-104); Anion Gap 9 mmol/L (2-11); BUN/Creatinine Ratio 19.7 (8-20); Blood Urea Nitrogen 15 mg/dL (6-24); CO2 Carbon Dioxide 27 mmol/L (22-32); Calcium 10.3 mg/dL (8.6-10.3); Chloride 104 mmol/L (101-111); EGFR African American 94.6 (>60); EGFR Non-African American 78.2 (>60); Globulin 2.3 g/dL (2-4); Glucose 100 mg/dL (70-100); Potassium 3.6 mmol/L (3.5-5.0); Sodium 140 mmol/L (135-145); Total Protein 6.9 g/dL (6.4-8.9)
[2019-01-14 19:23] LABS: Acetaminophen < 15 mcg/mL; Alcohol 10 mg/dL (<10); Salicylate < 2.50 mg/dL (<30)
[2019-01-14 19:36] LABS: TSH (Thyroid Stimulating Horm) 1.94 mcIU/mL (0.34-5.60)
--- OUTSIDE RECORDS SUMMARY | 2019-01-14 19:38 | XMS REPORT | Continuity of Care Document ---
:1960 External Reference #:[id number] Author Name Arminda Raygoza DNP, RN, BACK ROLL LATHE OPERATOR-BC (transmitted by agent of provider Audra Amezcua) Address [address] [facility], [address] [address] Care Team Providers Name Role Phone Anil Abel MD - Family Medicine Care Team Information College Associate [phone] Problems Active Problems Provider Date Obstructive sleep apnea syndrome Arminda Raygoza DNP, RN, BACK ROLL LATHE OPERATOR-BC Onset: Note: Moderate. HST: AHI 21.7/hour, td oxygen 79% (40 min<90%) Posttraumatic stress disorder Arminda Raygoza DNP, RN, BACK ROLL LATHE OPERATOR-BC Onset: 2018 Note: Pt concerned may interfere with PAP use Iliotibial band friction syndrome Bharathi Gross MD Onset: 10/26/2018 Derangement of knee Bhaarthi Gross MD Onset: 10/26/2018 Knee pain Bharathi Gross MD Onset: 10/26/2018 Social History Type Date Description Comments Sex Unknown Tobacco Use Start: Unknown End: Former Cigarette Smoker Social smoker. 4 00/00/00 per day for 6 months at the most Smoking Status Reviewed: 11/16/18 Former Cigarette Smoker Social smoker. 4 per [...] Sodium take 1 tablet 60tabs M76.32 Bharathi Gross MD 10/26/2018 75mg twice a day with Tablets DR food Lorazepam 1 po every 6 Unknown 0.5mg Tablets hours prn anxiety Effexor XR 1 tabs daily as Unknown 37.5mg Caps ER directed 24HR Vitamin D 1 by mouth every Unknown (Cholecalciferol) day 2000Unit Capsules Levothyroxine Sodium 1 tab by mouth Unknown daily 75mcg Tablets Multi Vitamin 1 by mouth every Unknown Tablets day Beano 1 tab by mouth Unknown Tablets daily prn Probiotic 1 by mouth every Unknown Capsules day prn Latvian Herbs Unknown History Medications Methylprednisolone medrol dosepak 21units M25.562 [place] Gallo 09/24/2018 - 4mg TBPK take as MD Abdoul 11/16/2018 instructed Medications Administered in Office Medication SIG Qnty Indications Ordering Provider Date Depomedrol 40MG [place] Schreiber MD 04/05/2017 Injection Immunizations CPT Code Status Date Vaccine Lot # [id number] Given 12/09/2010 Influenza Virus 3Yrs & Over [id number] Given 12/11/2009 Influenza Virus 3Yrs & Over [id number] Given 11/25/2005 Influenza Virus 3Yrs & Over Vital Signs Date Vital Result Comment 11/16/2018 8:23am Height 59 inches 4'11" Weight 138.00 lb Heart Rate 65 /min BP Systolic Sitting 118 mmHg BP Diastolic Sitting 78 mmHg O2 % BldC Oximetry 99 % BMI (Body Mass Index) 27.9 kg/m2 10/26/2018 10:26am Height 59 inches 4'11" Weight 140.00 lb Heart Rate 68 /min BP Systolic 102 mmHg BP Diastolic 68 mmHg Respiratory Rate 12 /min Pain Level 6 BMI (Body Mass Index) 28.3 kg/m2 Results Test Date Facility Test Result H/L Range Note CBC Auto 08/29/2018 [facility] White Blood 5.2 10^3/uL Normal 3.5-10.[address] [place] [address] [phone] Red Blood Count 4.44 10^6/uL Normal 3.70-4.87 [...] Blood Cells % 0.1 Comp Metabolic 08/29/2018 [facility] Sodium 139 mmol/L Normal 135-[address] [place] [address] [phone] Potassium 4.1 mmol/L Normal 3.5-5.0 Chloride 105 [...] Egfr 96.0 >60 1 Laboratory test 08/29/2018 [facility] Magnesium 2.2 mg/dL Normal 1.9-2.[address] [place] [address] [phone] TSH (Thyroid Stim Horm) 0.47 mcIU/mL Normal 0.34-5.60 Lipid Panel - 08/29/2018 [facility] Creatine 48 U/L Normal 10- [address] Kinase(CK) [place] [address] [phone] Lipid Profile 08/29/2018 [facility] Triglycerides 145 2 (Trig/Chol/HD [address] mg/dL L) [place] [address] [phone] Cholesterol 226 mg/dL 3 HDL Cholesterol 77.5 mg/dL 4 LDL Cholesterol 120 mg/dL 5 Laboratory test 08/29/2018 [facility] B-Type 13 pg/mL <=[address] [place] [address] Peptide BNP [phone] 1 Because ethnic data is not always [...] >189 Procedures Date Code Description Status 08/31/2018 54910 EKG Tracing & Interpretation Completed 12/18/2017 [id number] Mammogram Completed 12/30/2015 [id number] Bone Mineral Density Test Completed 06/19/2015 [id number] Mammogram Completed 02/11/2014 [id number] Mammogram Completed 12/02/2002 [id number] Colonoscopy Completed Medical Devices Description No Information Available Encounters Type Date Location Provider Dx Diagnosis Office Visit 11/16/2018 [facility] Raygoza, G47.33 Obstructive sleep 8:15a [facility] RN, BACK ROLL LATHE OPERATOR- apnea (adult) [facility] (pediatric) G47.14 Hypersomnia due to medical condition Office Visit 10/26/2018 10:15a [facility] Bharathi Gross M76.32 Iliotibial band at [place] syndrome, left leg M22.2x2 Patellofemoral disorders, left knee M25.562 Pain in left knee Office Visit 10/18/2018 2:00p [facility] Dermatology Master Santos, L82.1 Other seborrheic MD keratosis D22.61 Melanocytic nevi of right upper limb, including shoulder Z80.8 Family history of malignant neoplasm of organs or systems Office Visit 09/24/2018 [facility] [place] F M25.562 Pain in left knee 1:00p [facility] at [facility] Abdoul [place] Office Visit 08/31/2018 [facility] Allison Ku G47.33 Obstructive sleep 10:30a Vasquez, N.P. apnea (adult) (pediatric) I49.1 Atrial premature depolarization I49.3 Ventricular premature depolarization R94.31 Abnormal electrocardiogram [ECG] [EKG] Office Visit 05/25/2018 [facility] Arminda G47.33 Obstructive sleep 8:30a [facility] Raygoza RN, apnea (adult) [facility] BACK ROLL LATHE OPERATOR-BC (pediatric) J34.89 Other specified disorders of nose and nasal sinuses Assessments Date Code Description Provider 11/16/2018 G47.33 Obstructive sleep apnea (adult) Arminda Raygoza DNP, RN, (pediatric) BACK ROLL LATHE OPERATOR-BC 11/16/2018 G47.14 Hypersomnia due to medical condition Arminda Raygoza DNP , RN, BACK ROLL LATHE OPERATOR-BC 10/26/2018 M76.32 Iliotibial band syndrome, left leg [...] (pediatric) 08/31/2018 I49.1 Atrial premature depolarization Allison S. Vasquez, N.P. 08/31/2018 I49.3 Ventricular premature depolarization Allison S. Vasquez, N.P. 08/31/2018 R94.31 Abnormal electrocardiogram [ECG] Allison Ovalle, N.P. [EKG] 05/25/2018 G47.33 Obstructive sleep apnea (adult) Arminda Raygoza DNP, RN, (pediatric) BACK ROLL LATHE OPERATOR-BC 05/25/2018 J34.89 Other specified disorders of nose and Arminda Raygoza DNP , RN, nasal sinuses BACK ROLL LATHE OPERATOR- Plan of Treatment Future Appointment(s):05/17/2019 8:15 am - Arminda Raygoza DNP, RN, BACK ROLL LATHE OPERATOR-BC at [facility]12/07/2018 8:00 am - Bharathi Gross MD at [facility] at [facility]11/16/2018 - Arminda Raygoza DNP, RN, BACK ROLL LATHE OPERATOR-[facility]47.33 Obstructive sleep apnea (adult) (pediatric)Comments:11/27/17 HST AHI 21.7/hour , td oxygen 79% (40 min<90%).On CPAP auto 5-10 cm AHI 3.2/hour (normal) Follow up:6 monthsRecommendations:Continue PAP device, Benefitting and compliant with treatment. Eye dryness may try Blink eye drops (mild to mod during day, mod to severe at night) may try an eye mask or cloth over eyes to block air.Your driver helper could prescribe sleep goggles. Trial the P30i mask and small headgear. Let [facility] know which one you prefer. Cleaning Wipe off mask daily (baby wipe-no scent, or warm water) Clean mask, tubing, filter, and water chamber weekly in mild no scent dish soap and water. Hang to dry. If you have any sleepiness while driving you MUST avoid operating a vehicle or machinery. If you have difficulty with your equipment, or need to replace your mask or hoses, please contact your homecare agency. A weight change of 20 pounds or more may have an effect on your equipment; if you are experiencing problems please call for an appointment. If you have any further questions, please call the [facility] at [phone].g47.14 Hypersomnia due to medical conditionRecommendations:Recommend extending sleep time with CPAP to at least 7 hours per night (overall use at 6 hours, 7 minutes past 30-days) If you have any sleepiness while driving you MUST avoid operating a vehicle or machinery. Functional Status Description No Information Available Mental Status Description No Information Available Referrals Description No Information Available
--- OUTSIDE RECORDS SUMMARY | 2019-01-14 19:38 | XMS REPORT | Continuity of Care Document ---
:1960 External Reference #:[id number] Author Name Rayna Martin O.D. Address [address] [place] [id number] Care Team Providers Name Role Phone Anil Abel M.D. 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 Onset: 10/28/2016 Nuclear senile cataract Jimenez Harp M.D. Onset: 10/28/2016 Myopia Jimenez Harp M.D. Onset: 10/28/2016 Presbyopia Jimenez Harp M.D. Onset: 10/28/2016 Vitreous degeneration Rayna Martin O.D. Onset: 11/11/2018 Social History Type Date Description Comments Sex Unknown ETOH Use Occasionally consumes alcohol Recreational Drug Use Denies Drug Use Tobacco Use Start: Unknown End: Patient is a former smoker Unknown Smoking Status Reviewed: 12/06/18 Patient is a former smoker Allergies, Adverse Reactions, Alerts Description No Known Drug Allergies Medications Active Medications SIG Qnty Indications Ordering Provider Date Lorazepam Take Up To 3 And Unknown 0.5mg Tablets 1/2 Tablets Daily as Needed For Anxiety--Max 3 And 1/ Levothyroxine Sodium Unknown 75mcg Tablets Venlafaxine HCL ER take 3 capsules Unknown 37.5mg by mouth once Caps ER 24HR daily Immunizations Description No Information Available Vital Signs Description No Information Available Results Description No Information Available Procedures Date Code Description Status 11/11/2018 03133 Est Patient Intermediate Exam Completed Medical Devices Description No Information Available Encounters Type Date Location Provider Dx Diagnosis Office Visit 11/16/2018 Jimenez Harp, Rayna Martin, H43.812 Vitreous 2:00p , pc OSonal. degeneration, left eye Assessments Date Code Description Provider 12/06/2018 H43.812 Vitreous degeneration, left eye Rayna Martin O.D. 11/16/2018 H43.812 Vitreous degeneration, left eye Rayna Martin O.D. 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 Plan of Treatment 12/06/2018 - Rayna Martin O.D.H43.812 Vitreous degeneration, left eyeComments :Smoking can increase the risk of developing or worsening any eye related disease, as well as affect your overall health. If you are a smoker, we strongly recommend that you quit.If you are not a smoker, we strongly recommend that you do not start. You have a Posterior Vitreous Detachment in your left eye. If you have any changes in your floaters or flashing lights, please contact this office.Follow up:2-3 WEEKS MR, THEN DFE Functional Status Description No Information Available Mental Status Description No Information Available Referrals Description No Information Available
--- OUTSIDE RECORDS SUMMARY | 2019-01-14 19:38 | XMS REPORT | Continuity of Care Document ---
:1960 External Reference #:[id number] Author Name Ashley Ramirez (transmitted by agent of provider Alexus Rubio) Address [address] [facility] [facility], [place] [address] Care Team Providers Name Role Phone Anil Abel MD - Family Medicine Care Team Information Staff Engineer [phone] Problems Active Problems Provider Date Obstructive sleep apnea syndrome Arminda Raygoza DNP, RN, DARKROOM TECHNICIAN- Onset: Note: Moderate. HST: AHI 21.7/hour, td oxygen 79% (40 min<90%) Posttraumatic stress disorder Arminda Raygoza DNP, RN, DARKROOM TECHNICIAN-BC Onset: 2018 Note: Pt concerned may interfere with PAP use Iliotibial band friction syndrome Bharahti Gross MD Onset: 10/26/2018 Derangement of knee Bharathi Gross MD Onset: 10/26/2018 Knee pain Bharathi Gross MD Onset: 10/26/2018 Social History Type Date Description Comments Sex Unknown Tobacco Use Start: Unknown End: Former Cigarette Smoker Social smoker. 4 00/00/00 per day for 6 months at the most Smoking Status Reviewed: 01/14/19 Former Cigarette Smoker Social smoker. 4 per [...] by mouth every Unknown Capsules day prn Macedonian Herbs Unknown History Medications Methylprednisolone medrol dosepak 21units M25.562 [place] Gallo 09/24/2018 - 4mg TBPK take as MD Abdoul 11/16/2018 instructed Medications Administered in Office Medication SIG Qnty Indications Ordering Provider Date Depomedrol 40MG [place] Schreiber MD 04/05/2017 Injection Immunizations CPT Code Status Date Vaccine Lot # [id number] Given 12/09/2010 Influenza Virus 3Yrs & Over [id number] Given 12/11/2009 Influenza Virus 3Yrs & Over [id number] Given 11/25/2005 Influenza Virus 3Yrs & Over Vital Signs Date Vital Result Comment 01/14/2019 3:06pm Height 59 inches 4'11" Weight 140.00 lb Heart Rate 72 /min BP Systolic 136 mmHg BP Diastolic 72 mmHg O2 % BldC Oximetry 97 % BMI (Body Mass Index) 28.3 kg/m2 11/16/2018 8:23am Height 59 inches 4'11" Weight 138.00 lb Heart Rate 65 /min BP Systolic Sitting 118 mmHg BP Diastolic Sitting 78 mmHg O2 % BldC Oximetry 99 % BMI (Body Mass Index) 27.9 kg/m2 Results Test Acquired Date Facility Test Result H/L Range Note Laboratory test 01/14/2019 [facility] [place]/ <pending> finding [address] Yeast: [place] [address] Vaginal Dna [phone] CBC Auto Diff 08/29/2018 [facility] White Blood 5.2 10^3/uL Normal 3.5-10.[address] [place] [address] [phone] Red Blood Count 4.44 10^6/uL Normal 3.70-4.87 [...] Blood Cells % 0.1 Comp Metabolic 08/29/2018 [facility] Sodium 139 mmol/L Normal 135-[address] [place] [address] [phone] Potassium 4.1 mmol/L Normal 3.5-5.0 Chloride 105 [...] Egfr 96.0 >60 1 Laboratory test 08/29/2018 [facility] Magnesium 2.2 mg/dL Normal 1.9-2.[address] [place] [address] [phone] TSH (Thyroid Stim Horm) 0.47 mcIU/mL Normal 0.34-5.60 Lipid Panel - 08/29/2018 [facility] Creatine 48 U/L Normal 10- [address] Kinase(CK) [place] [address] [phone] Lipid Profile 08/29/2018 [facility] Triglycerides 145 2 (Trig/Chol/HD [address] mg/dL L) [place] [address] [phone] Cholesterol 226 mg/dL 3 HDL Cholesterol 77.5 mg/dL 4 LDL Cholesterol 120 mg/dL 5 Laboratory test 08/29/2018 [facility] B-Type 13 pg/mL <=[address] [place] [address] Peptide BNP [phone] 1 Because ethnic data is not always [...] >189 Procedures Date Code Description Status 08/31/2018 34995 EKG Tracing & Interpretation Completed 12/18/2017 [id number] Mammogram Completed 12/30/2015 [id number] Bone Mineral Density Test Completed 06/19/2015 [id number] Mammogram Completed 02/11/2014 [id number] Mammogram Completed 12/02/2002 [id number] Colonoscopy Completed Medical Devices Description No Information Available Encounters Type Date Location Provider Dx Diagnosis Office Visit 11/16/2018 [facility] Raygoza, G47.33 Obstructive sleep 8:15a [facility], PAULIE- apnea (adult) [facility] (pediatric) G47.14 Hypersomnia due to medical condition Office Visit 10/26/2018 10:15a [facility] Bharathi Gross M76.32 Iliotibial band at [place] syndrome, left leg M22.2x2 Patellofemoral disorders, left knee M25.562 Pain in left knee Office Visit 10/18/2018 2:00p [facility] Dermatology Master Yentzer, L82.1 Other seborrheic MD keratosis D22.61 Melanocytic nevi of right upper limb, including shoulder Z80.8 Family history of malignant neoplasm of organs or systems Office Visit 09/24/2018 [facility] [place] F M25.562 Pain in left knee 1:00p Orthopedics at MD Abdoul [place] Office Visit 08/31/2018 [facility] Allison Ku G47.33 Obstructive sleep 10:30a Vasquez N.PEliza apnea (adult) (pediatric) I49.1 Atrial premature depolarization I49.3 Ventricular premature depolarization R94.31 Abnormal electrocardiogram [ECG] [EKG] Assessments Date Code Description Provider 01/14/2019 N76.0 Acute vaginitis Ashley Ramirez 01/14/2019 R30.0 Dysuria Ashley Ramirez 01/14/2019 F43.11 Post-traumatic stress disorder, acute SUMI Ramirez 11/16/2018 G47.33 Obstructive sleep apnea (adult) Arminda Raygoza DNP, RN, (pediatric) [facility] 11/16/2018 G47.14 Hypersomnia due to medical condition Arminda Raygoza DNP , RN, [facility]- 10/26/2018 M76.32 Iliotibial band syndrome, left leg [...] Abnormal electrocardiogram [ECG] Allison Ovalle N.P. [EKG] Plan of Treatment Future Appointment(s):01/24/2019 2:45 pm - Bharathi Gross MD at [facility]05/17/2019 8:15 am - Arminda Raygoza DNP, RN, [facility] at [facility]01/14/2019 - PAULIE Ramirez-CdeN76.0 Acute umxbckkrtD41.0 JmnnxxnJ65.11 Post-traumatic stress disorder, acuteFollow up:[facility] ED contacted for evaluation and possible admission Functional Status Description No Information Available Mental Status Description No Information Available Referrals Description No Information Available
--- OUTSIDE RECORDS SUMMARY | 2019-01-14 19:38 | XMS REPORT | Continuity of Care Document ---
:1960 External Reference #:[id number] Author Name Rayna Martin O.D. Address [address] [place] [address] Care Team Providers Name Role Phone Anil Abel M.D. - Internal Care Team Information Assistant Director Of Admissions Medicine Problems Active Problems Provider Date Acid [...] a former smoker Unknown Smoking Status Reviewed: 12/27/18 Patient is a former smoker Allergies, Adverse Reactions, Alerts Active Allergies Reaction Severity Comments Date Seasonal Moderate 12/27/2018 Medications Active Medications SIG Qnty Indications Ordering [...] Information Available Procedures Date Code Description Status 12/06/2018 66133 Est Patient Intermediate Exam Completed 11/11/2018 48323 Est Patient Intermediate Exam Completed Medical Devices Description No Information Available Encounters Type Date Location Provider Dx Diagnosis Office Visit 11/16/2018 [facility]rp, Rayna Martin, H43.812 Vitreous 2:00p moustapha COPELAND O.D. degeneration, left eye Assessments Date Code Description Provider 12/27/2018 H43.812 Vitreous degeneration, left eye Rayna Martin O.D. 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 12/27/2018 H25.13 Age-related nuclear cataract, bilateral Rayna Martin O.D. 12/27/2018 H52.13 Myopia, bilateral Rayna Martin O.D. 12/06/2018 H43.812 Vitreous degeneration, left eye Rayna Martin O.D. 11/16/2018 H43.812 Vitreous degeneration, left eye Rayna Martin O.D. 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 Plan of Treatment 12/27/2018 - Rayna Martin O.D.H43.812 Vitreous degeneration, left eyeComments :You have a Posterior Vitreous Detachment in your left eye. If you have any changes in your floaters or flashing lights, please contact this office.Follow up:1 year You can expect to have your eyes dilated at your next visit. If Dr. Martin orders any additional testing, it may require extra time. We recommend that you bring sunglasses, as dilation drops often make you light sensitive until they wear off. We always recommend you bring someone to drive you home if you are uncomfortable driving with your eyes dilated. If you have any questions before your next visit, feel free to call our office at .H49.11 Fourth [trochlear] nerve palsy, right eyeH25.13 Age-related nuclear cataract, bilateralComments:You have been diagnosed with cataracts. If you are happy with your vision as it is now, then we willsee you at your next scheduled appointment. If you feel like your vision is getting worse before your scheduled appointment, please call Jenny at [phone].h52.13 Myopia, bilateralComments:You have Myopia, or near sightedness. I have given you a prescription for glasses. Functional Status Description No Information Available Mental Status Description No Information Available Referrals Description No Information Available
--- OUTSIDE RECORDS SUMMARY | 2019-01-14 19:38 | XMS REPORT | Continuity of Care Document ---
:1960 External Reference #:[id number] Author Name Rayna Martin O.D. Address [address] [place] [phone] Care Team Providers Name Role Phone Anil Abel M.D. 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 Plan of Treatment 11/16/2018 - Rayna Martin O.D.H43.812 Vitreous degeneration, left [...] or flashing lights, please contact this office.Follow up:3 weeks DFE or sooner as needed Functional Status Description No Information Available Mental Status Description No Information Available Referrals Description No Information Available
[2019-01-14 19:47] LABS: Urine Appearance Clear; Urine Bilirubin Negative (Negative); Urine Blood Negative (Negative); Urine Color Straw; Urine Glucose Negative (Negative); Urine Ketones Negative (Negative); Urine Nitrite Negative (Negative); Urine Protein Negative (Negative); Urine Specific Gravity 1.005 (1.010-1.030); Urine Urobilinogen Negative (Negative)
[2019-01-14 19:48] LABS: Urine Bacteria Absent (Absent); Urine Red Blood Cell Trace(0-2/hpf) (Absent); Urine Squamous Epithelial Cell Present (Absent); Urine White Blood Cell Trace(0-5/hpf) (Absent)
[2019-01-14 20:04] LABS: Urine Benzodiazepine Screen None Detected (None Detect); Urine Opiates Screen None Detected (None Detect)
[2019-01-14] MEDS ORDERED: LORazepam TAB(*) 1 MG PO ONE (20:07)
[2019-01-14 20:20] VITALS: BP 120/57
--- NOTE | 2019-01-14 22:26 | ED ---
Progress - Progress Note Progress Note: Pt is a signout from Dr. Valerio at 2200 pending MHE. Course/Dx - Course Course Of Treatment: Pt is a signout from Dr. Valerio at 2200 pending MHE. Pt will be signed out to Dr. Claros at 0700 on 01/15/19 pending MHE. - Diagnoses Provider Diagnoses: Suicidal ideation Discharge ED - Sign-Out/Discharge Documenting (check all that apply): Receiving Sign-Out Signing out patient TO: Shay Claros Receiving patient FROM: Jem Valerio - Discharge Plan Referrals: Anil Abel MD [Primary Care Provider] - - Attestation Statements Document Initiated by Scribe: Yes Documenting Scribe: Yudith Calzada Provider For Whom Jason is Documenting (Include Credential): Arya Bryant MD. Scribe Attestation: Yudith Ford, aishaed for Arya Bryant MD. on 01/15/19 at 0644. Scribe Documentation Reviewed: Yes Provider Attestation: The documentation as recorded by the Yudith holcomb accurately reflects the service I personally performed and the decisions made by Arya plasencia MD. Status of Scribe Document: Viewed
[2019-01-15] MEDS ORDERED: LORazepam TAB(*) 0.5 MG PO PRN (02:29)
[2019-01-15] MEDS ORDERED: Venlafaxine EXT RELEASE CAP* 37.5 MG PO ONE (04:30)
--- NOTE | 2019-01-15 07:30 | ED ---
Progress - Progress Note Progress Note: Patient is received as a sign-out from Dr. Bryant to Dr. Guillen at 0700 shift change pending MHE. Course/Dx - Course Course Of Treatment: Pt is a signout from Dr. Valerio at 2200 pending MHE. Pt will be signed out to Dr. Guillen at 0700 on 01/15/19 pending MHE. - Diagnoses Provider Diagnoses: Mood disorder - Provider Notifications Discussed Care Of Patient With: Jonathan Irizarry Time Discussed With Above Provider: 09:40 Instructed by Provider To: Other - Patient's case was reviewed by Dr. Irizarry, patient is discharged to home with outpatient mental health follow up. Discharge ED - Sign-Out/Discharge Documenting (check all that apply): Patient Departure - discharge , Receiving Sign-Out Receiving patient FROM: Arya Bryant - Discharge Plan Condition: Stable Disposition: HOME Referrals: Anil Abel MD [Primary Care Provider] - - Billing Disposition and Condition Condition: STABLE Disposition: Home - Attestation Statements Document Initiated by Jason: Yes Documenting Scribe: HUY WREN Provider For Whom Jason is Documenting (Include Credential): VERNA GUILLEN MD Scribe Attestation: I, HUY WREN, scribed for VERNA GUILLEN MD on 01/15/19 at 1616. Scribe Documentation Reviewed: Yes Provider Attestation: The documentation as recorded by the HUY holcomb accurately reflects the service I personally performed and the decisions made by me, VERNA GUILLEN MD Status of Scribe Document: Viewed
[2019-01-15] MEDS ORDERED: Ibuprofen TAB* 600 MG PO ONE (09:14)
[2019-01-15] MEDS ORDERED: LORazepam TAB(*) 1 MG PO ONE (09:14)
== END 2019-01-15 10:16 | disposition home or self-care (01) ==
LOC: ED 17:32
DX: R45.851 Suicidal ideations (principal); F39 Unspecified mood [affective] disorder; Z79.899 Other long term (current) drug therapy; Z88.4 Allergy status to anesthetic agent; Z88.8 Allergy status to other drugs, medicaments and biological substances; E03.9 Hypothyroidism, unspecified; J45.909 Unspecified asthma, uncomplicated; K21.9 Gastro-esophageal reflux disease without esophagitis
CPT/HCPCS: 36415; 80053; 80307; 80320; 80329; 81003; 81015; 84443; 85025; 99284; A9270-GY; G0480

== ENCOUNTER 2021-01-05 12:59 | Inpatient (IN) ==
[2021-01-05 14:17] LABS: Urine Appearance Cloudy; Urine Bilirubin Negative (Negative); Urine Blood Negative (Negative); Urine Color Yellow; Urine Glucose Negative (Negative); Urine Ketones Negative (Negative); Urine Nitrite Negative (Negative); Urine Protein Negative (Negative); Urine Urobilinogen Negative (Negative)
[2021-01-05 14:20] LABS: ABS Eosinophils 0.1 10^3/ul (0-0.6); ABS Lymphocytes 1.7 10^3/ul (1.0-4.8); ABS Monocytes 0.7 10^3/ul (0-0.8); ABS Neutrophils 6.1 10^3/ul (1.5-7.7); Eosinophil % 1.3 %; Hematocrit 41 % (35-47); Hemoglobin 14.4 g/dL (12.0-16.0); Lymphocyte % 19.7 %; Mean Corpuscular HGB Conc 35 g/dL (31-36); Mean Corpuscular Hemoglobin 31 pg (27-31); Mean Corpuscular Volume 90 fL (80-97); Mean Platelet Volume 8.6 fL (7.4-10.4); Platelet Count 298 10^3/uL (150-450); Red Blood Count 4.62 10^6 /uL (3.70-4.87); Red Cell Distribution Width 13 % (10-15); White Blood Count 8.8 10^3/uL (3.5-10.8)
[2021-01-05 14:23] LABS: Urine Bacteria 1+ (Absent); Urine Red Blood Cell Trace(0-2/hpf) (Absent); Urine Squamous Epithelial Cell Present (Absent); Urine White Blood Cell 2+(11-20/hpf) (Absent)
[2021-01-05 14:42] LABS: Urine Benzodiazepine Screen None Detected (None Detect); Urine Cannabinoids Screen None Detected (None Detect); Urine Opiates Screen None Detected (None Detect)
[2021-01-05 14:43] LABS: ALT 19 U/L (7-52); AST 16 U/L (13-39); Albumin 4.2 g/dL (3.2-5.2); Albumin/Globulin Ratio 1.8 (1-3); Alkaline Phosphatase 85 U/L (35-149); Anion Gap 7 mmol/L (2-11); Blood Urea Nitrogen 16 mg/dL (6-24); CO2 Carbon Dioxide 24 mmol/L (22-32); Calcium 9.2 mg/dL (8.6-10.3); Chloride 106 mmol/L (101-111); Globulin 2.3 g/dL (2-4); Glucose 103 mg/dL (70-100); Potassium 4.1 mmol/L (3.5-5.0); Sodium 137 mmol/L (135-145); Total Protein 6.5 g/dL (6.4-8.9); eGFR CKD-EPI 100.4 (>60)
[2021-01-05 14:46] LABS: Alcohol, S < 13 mg/dL (<13); Salicylate < 2.50 mg/dL (<30)
[2021-01-05 14:48] LABS: Acetaminophen < 15 mcg/mL
[2021-01-05 14:52] LABS: TSH Ultra Thyroid Stim Horm 0.59 mcIU/mL (0.34-5.60)
[2021-01-05 21:07] LABS: Rapid COVID-19 Molecular Undetected (Undetected)
[2021-01-05] MEDS ORDERED: Al Hydrox/Mg Hydrox/Simet LIQ 30 ML UDC PO PRN (21:20)
[2021-01-06] MEDS: Vitamin THERAPEUTIC TAB PO SCH (08:23)
[2021-01-07] MEDS: Vitamin THERAPEUTIC TAB PO SCH (07:51)
[2021-01-08] MEDS: Vitamin THERAPEUTIC TAB PO SCH (07:54)
[2021-01-08] MEDS: Polyethylene Glycol 3350 17 GM PACKET PO SCH (18:30)
[2021-01-09] MEDS: Vitamin THERAPEUTIC TAB PO SCH (09:05)
[2021-01-09] MEDS: Polyethylene Glycol 3350 17 GM PACKET PO SCH (09:06)
[2021-01-09] MEDS: Psyllium PAK PO SCH (09:06)
[2021-01-10] MEDS: Polyethylene Glycol 3350 17 GM PACKET PO SCH (09:07)
[2021-01-10] MEDS: Psyllium PAK PO SCH (09:07)
[2021-01-10] MEDS: Vitamin THERAPEUTIC TAB PO SCH (09:08)
[2021-01-11] MEDS: Polyethylene Glycol 3350 17 GM PACKET PO SCH (08:02)
[2021-01-11] MEDS: Psyllium PAK PO SCH (08:02)
[2021-01-11] MEDS: Vitamin THERAPEUTIC TAB PO SCH (08:02)
[2021-01-11 11:54] VITALS: BP 124/60
== END 2021-01-11 16:20 | disposition home or self-care (01) | DRG 755 ==
LOC: ED 12:59 → BSU 18:00
PROVIDERS: ADMIT Psychiatry & Neurology Psychiatry; ATTEND Psychiatry & Neurology Psychiatry

== ENCOUNTER 2021-06-04 09:05 | Inpatient (IN) ==
[2021-06-04 10:06] LABS: ABS Lymphocytes 0.9 10^3/ul (1.0-4.8); ABS Monocytes 0.4 10^3/ul (0-0.8); ABS Neutrophils 5.8 10^3/ul (1.5-7.7); Eosinophil % 0.4 %; Hematocrit 40 % (35-47); Lymphocyte % 12.9 %; Mean Corpuscular HGB Conc 35 g/dL (31-36); Mean Corpuscular Hemoglobin 31 pg (27-31); Mean Corpuscular Volume 90 fL (80-97); Mean Platelet Volume 8.8 fL (7.4-10.4); Platelet Count 228 10^3/uL (150-450); Red Blood Count 4.47 10^6 /uL (3.70-4.87); Red Cell Distribution Width 13 % (10-15); White Blood Count 7.2 10^3/uL (3.5-10.8)
[2021-06-04 10:10] LABS: Urine Appearance Cloudy; Urine Bilirubin Negative (Negative); Urine Blood Negative (Negative); Urine Color Straw; Urine Glucose Negative (Negative); Urine Ketones Negative (Negative); Urine Nitrite Negative (Negative); Urine Protein Negative (Negative); Urine Specific Gravity 1.003 (1.002-1.030); Urine Urobilinogen Negative (Negative)
[2021-06-04 10:17] LABS: Urine Bacteria 3+ (Absent); Urine Red Blood Cell 1+(3-5/hpf) (Absent); Urine Squamous Epithelial Cell Present (Absent); Urine White Blood Cell 2+(11-20/hpf) (Absent)
[2021-06-04 10:32] LABS: Urine Benzodiazepine Screen None Detected (None Detect); Urine Cannabinoids Screen None Detected (None Detect); Urine Opiates Screen None Detected (None Detect)
[2021-06-04 10:36] LABS: ALT 25 U/L (7-52); AST 17 U/L (13-39); Acetaminophen < 15 mcg/mL; Albumin 4.2 g/dL (3.2-5.2); Alcohol, S < 13 mg/dL (<13); Alkaline Phosphatase 88 U/L (35-149); Anion Gap 5 mmol/L (2-11); Blood Urea Nitrogen 9 mg/dL (6-24); CO2 Carbon Dioxide 30 mmol/L (22-32); Calcium 10.1 mg/dL (8.6-10.3); Chloride 105 mmol/L (101-111); Globulin 2.1 g/dL (2-4); Glucose 94 mg/dL (70-100); Salicylate < 2.50 mg/dL (<30); Sodium 140 mmol/L (135-145); Total Protein 6.3 g/dL (6.4-8.9)
[2021-06-04 10:49] LABS: TSH Ultra Thyroid Stim Horm 4.13 mcIU/mL (0.34-5.60)
[2021-06-04] MEDS ORDERED: Al Hydrox/Mg Hydrox/Simet LIQ 30 ML UDC PO PRN (15:40)
[2021-06-04] MEDS: Sulfamethox/Trimethoprim DS TAB 800/160 mg PO SCH (21:24)
[2021-06-05] MEDS: Sulfamethox/Trimethoprim DS TAB 800/160 mg PO SCH ×2 (08:36→20:28)
[2021-06-05] MEDS: Vitamin THERAPEUTIC TAB PO SCH (08:37)
[2021-06-05] MEDS: Cholecalciferol (VIT D3) 1,000 unit TAB PO SCH (08:38)
[2021-06-06] MEDS: Vitamin THERAPEUTIC TAB PO SCH (07:45)
[2021-06-06] MEDS: Cholecalciferol (VIT D3) 1,000 unit TAB PO SCH (07:45)
[2021-06-06] MEDS: Sulfamethox/Trimethoprim DS TAB 800/160 mg PO SCH ×2 (07:46→19:56)
[2021-06-06] MEDS: Polyethylene Glycol 3350 17 GM PACKET PO PRN (13:45)
[2021-06-07] MEDS: Vitamin THERAPEUTIC TAB PO SCH (08:48)
[2021-06-07] MEDS: Cholecalciferol (VIT D3) 1,000 unit TAB PO SCH (08:49)
[2021-06-07] MEDS: Sulfamethox/Trimethoprim DS TAB 800/160 mg PO SCH ×2 (10:52→19:33)
[2021-06-07] MEDS ORDERED: ESTRADIOL VAG CM VAGINAL SCH (18:46)
[2021-06-08] MEDS: Polyethylene Glycol 3350 17 GM PACKET PO PRN (08:10)
[2021-06-08] MEDS: Vitamin THERAPEUTIC TAB PO SCH (08:11)
[2021-06-08] MEDS: Sulfamethox/Trimethoprim DS TAB 800/160 mg PO SCH ×2 (08:12→20:42)
[2021-06-08] MEDS: Cholecalciferol (VIT D3) 1,000 unit TAB PO SCH (08:13)
[2021-06-09] MEDS ORDERED: LEVOTHYROXINE 50 MCG PO SCH (06:00)
[2021-06-09 08:51] VITALS: BP 120/66
[2021-06-09] MEDS: Cholecalciferol (VIT D3) 1,000 unit TAB PO SCH (09:49)
[2021-06-09] MEDS: Vitamin THERAPEUTIC TAB PO SCH (09:50)
[2021-06-09] MEDS: Sulfamethox/Trimethoprim DS TAB 800/160 mg PO SCH (10:56)
== END 2021-06-09 16:00 | disposition home or self-care (01) | DRG 751 ==
LOC: ED 09:05 → EDHOLD 15:41 → BSU 20:19
PROVIDERS: ADMIT Psychiatry & Neurology Psychiatry; ATTEND Psychiatry & Neurology Psychiatry

== ENCOUNTER 2021-07-27 16:34 | Inpatient (IN) ==
[2021-07-27 17:40] LABS: ABS Eosinophils 0.1 10^3/ul (0-0.6); ABS Lymphocytes 2.4 10^3/ul (1.0-4.8); ABS Monocytes 0.7 10^3/ul (0-0.8); ABS Neutrophils 4.9 10^3/ul (1.5-7.7); Eosinophil % 1.7 %; Hematocrit 39 % (35-47); Hemoglobin 13.2 g/dL (12.0-16.0); Lymphocyte % 29.7 %; Mean Corpuscular HGB Conc 34 g/dL (31-36); Mean Corpuscular Hemoglobin 31 pg (27-31); Mean Corpuscular Volume 91 fL (80-97); Mean Platelet Volume 8.3 fL (7.4-10.4); Platelet Count 271 10^3/uL (150-450); Red Blood Count 4.24 10^6 /uL (3.70-4.87); Red Cell Distribution Width 13 % (10-15); White Blood Count 8.1 10^3/uL (3.5-10.8)
[2021-07-27 17:55] LABS: Urine Appearance Clear; Urine Color Yellow
[2021-07-27 17:56] LABS: Urine Bilirubin Negative (Negative); Urine Blood Negative (Negative); Urine Glucose Negative (Negative); Urine Ketones Negative (Negative); Urine Nitrite Negative (Negative); Urine Protein Negative (Negative); Urine Specific Gravity 1.015 (1.005-1.030); Urine Urobilinogen 0.2 (Negative) (Negative)
[2021-07-27 18:05] LABS: Urine Bacteria 1+ (Absent); Urine Red Blood Cell Trace(0-2/hpf) (Absent); Urine Squamous Epithelial Cell Present (Absent); Urine White Blood Cell Trace(0-5/hpf) (Absent)
[2021-07-27 18:09] LABS: ALT 14 U/L (7-52); AST 12 U/L (13-39); Acetaminophen < 15 mcg/mL; Albumin 4.3 g/dL (3.2-5.2); Alcohol, S < 13 mg/dL (<13); Alkaline Phosphatase 84 U/L (35-149); Anion Gap 5 mmol/L (2-11); Blood Urea Nitrogen 20 mg/dL (6-24); CO2 Carbon Dioxide 28 mmol/L (22-32); Calcium 9.6 mg/dL (8.6-10.3); Chloride 106 mmol/L (101-111); Globulin 2.1 g/dL (2-4); Glucose 101 mg/dL (70-100); Potassium 3.9 mmol/L (3.5-5.0); Salicylate < 2.50 mg/dL (<30); Sodium 139 mmol/L (135-145); Total Protein 6.4 g/dL (6.4-8.9); eGFR CKD-EPI 95.1 (>60)
[2021-07-27 18:10] LABS: Urine Benzodiazepine Screen None Detected (None Detect); Urine Cannabinoids Screen None Detected (None Detect); Urine Opiates Screen None Detected (None Detect)
[2021-07-27 18:19] LABS: TSH Ultra Thyroid Stim Horm 5.44 mcIU/mL (0.34-5.60)
[2021-07-27] MEDS ORDERED: Al Hydrox/Mg Hydrox/Simet LIQ 30 ML UDC PO PRN (21:55)
[2021-07-28 08:22] LABS: HDL Cholesterol 87.8 mg/dL
[2021-07-28] MEDS ORDERED: Venlafaxine XR 75 mg PO SCH (09:00)
[2021-07-28] MEDS: Vitamin THERAPEUTIC TAB PO SCH (09:14)
[2021-07-29] MEDS: Cholecalciferol (VIT D3) 400 units TAB PO SCH (08:58)
[2021-07-29] MEDS: Venlafaxine XR 75 mg PO SCH (08:58)
[2021-07-29] MEDS: Vitamin THERAPEUTIC TAB PO SCH (08:58)
[2021-07-30] MEDS: Vitamin THERAPEUTIC TAB PO SCH (08:40)
[2021-07-30] MEDS: Venlafaxine XR 75 mg PO SCH (08:40)
[2021-07-30] MEDS: Cholecalciferol (VIT D3) 400 units TAB PO SCH (08:40)
[2021-07-30] MEDS: Polyethylene Glycol 3350 17 GM PACKET PO PRN (08:43)
[2021-07-31] MEDS: Vitamin THERAPEUTIC TAB PO SCH (09:02)
[2021-07-31] MEDS: Venlafaxine XR 75 mg PO SCH (09:02)
[2021-07-31] MEDS: Polyethylene Glycol 3350 17 GM PACKET PO PRN (09:03)
[2021-07-31] MEDS: Cholecalciferol (VIT D3) 400 units TAB PO SCH (09:18)
[2021-08-01] MEDS: Vitamin THERAPEUTIC TAB PO SCH (08:51)
[2021-08-01] MEDS: Venlafaxine XR 75 mg PO SCH (08:51)
[2021-08-01] MEDS: Cholecalciferol (VIT D3) 400 units TAB PO SCH (08:51)
[2021-08-01] MEDS: Polyethylene Glycol 3350 17 GM PACKET PO PRN (08:53)
[2021-08-02] MEDS: Cholecalciferol (VIT D3) 400 units TAB PO SCH (07:33)
[2021-08-02] MEDS: Vitamin THERAPEUTIC TAB PO SCH (07:34)
[2021-08-02] MEDS: Venlafaxine XR 75 mg PO SCH (07:34)
[2021-08-02] MEDS: MAGNESIUM OXIDE 400 MG PO SCH (20:22)
[2021-08-03] MEDS: Vitamin THERAPEUTIC TAB PO SCH (07:17)
[2021-08-03] MEDS: Cholecalciferol (VIT D3) 400 units TAB PO SCH (07:17)
[2021-08-03] MEDS: Venlafaxine XR 75 mg PO SCH (07:18)
[2021-08-03] MEDS: MAGNESIUM OXIDE 400 MG PO SCH (20:58)
[2021-08-04] MEDS: Cholecalciferol (VIT D3) 400 units TAB PO SCH (08:23)
[2021-08-04 08:24] VITALS: BP 113/63
[2021-08-04] MEDS: Venlafaxine XR 75 mg PO SCH (08:24)
[2021-08-04] MEDS: Vitamin THERAPEUTIC TAB PO SCH (08:24)
[2021-08-04 11:32] LABS: Urine Appearance Cloudy; Urine Bilirubin Negative (Negative); Urine Blood Negative (Negative); Urine Color Yellow; Urine Glucose Negative (Negative); Urine Ketones Negative (Negative); Urine Nitrite Negative (Negative); Urine Protein Negative (Negative); Urine Specific Gravity 1.006 (1.002-1.030); Urine Urobilinogen Negative (Negative)
== END 2021-08-04 17:00 | disposition home or self-care (01) | DRG 755 ==
LOC: ED 16:34 → BSU 21:59
PROVIDERS: ADMIT Psychiatry & Neurology Psychiatry; ATTEND Psychiatry & Neurology Psychiatry